=== PATIENT | male | born 1945 | race Caucasian/White ===

== ENCOUNTER 2016-03-05 07:56 | Day surgery (SDC) | payer MEDICARE, OTHER ==
[~2016-03-05] VITALS: Ht 188 cm; Wt 112.0 kg
[~2016-03-05 07:56] MED LIST: ASPI-973 PO; CLOP75TA3 PO; HYDR-3940 PO; HYDR25TA4 PO; LIP40 PO; LORA10CA PO; LOSA50TA37 PO; Lactated Ringer's 1,000 ML IV SCH; MELO7.5O PO; METF1000 PO; METO-272 PO; NIFE60TA62 PO; SITA100T12 PO
--- NOTE | 2016-03-05 09:14 | PCM.PNSURG ---
Subjective Date of Service: Mar 05, 2016 Assessment & Plan Impression Patient presented for ESWL today. Patient states he was advised by his provider that he can stop taking Plavix reyes-op, however patient did not stop taking Plavix pre-op and last took Plavix yesterday. Discussed with patient that it is not safe for him to have ESWL while on blood-thinning medications, which patient understands. ESWL canceled for today. ESWL will be re-scheduled for next available time (2 weeks). Instructed patient to hold all blood- thinning meds (including Plavix) for 7 days before and after ESWL. Of note, patient states he has been having R-sided pain and wishes to have pain medication Rx. [facility] Rx given to patient. Problems: Joel Bustillos MD Mar 05, 2016 09:14
--- NOTE | 2016-03-05 10:23 | DRSVH ---
PROCEDURE: X-RAY KUB ([id number]) INDICATIONS: RIGHT KIDNEY STONE TECHNIQUE: One view of the abdomen acquired. COMPARISON: [facility], MARIANO, MATILDE, 04/14/2012, 10:09. FINDINGS: Surgical changes and devices: None. Bowel: Bowel gas pattern is normal. Soft tissues: There multiple subcentimeter bilateral calcifications projected over the expected locat ion of the kidney which likely represent subcentimeter renal stones. There is a 10 mm diameter calcul us projected over the lower pole of the right kidney. Probable phleboliths are redemonstrated within the pelvis unchanged from the study dated 04/14/12. Bones: No suspicious bony lesions. IMPRESSION: Bilateral nephrolithiasis with the largest stone in the right lower pole. Dictated by: Moira Leary M.D. on 03/05/2016 at 10:21 Approved by: Moira Leary M.D. on 03/05/2016 at 10:21
== END 2016-03-05 23:59 | disposition home or self-care (01) ==
LOC: SAS 07:56
PROVIDERS: ATTEND Urology
DX: N20.0 Calculus of kidney (principal); Z53.09 Procedure and treatment not carried out because of other contraindication; Z79.01 Long term (current) use of anticoagulants

== ENCOUNTER 2016-03-19 05:36 | Day surgery (SDC) | payer MEDICARE, OTHER ==
[2016-03-19] VITALS (9 sets, daily range): BP systolic 128–146; BP diastolic 69–90; PULSE 56–63; RESP 13–22; O2SAT 95–99
[~2016-03-19] VITALS: Ht 188 cm; Wt 110.5 kg
[~2016-03-19 05:36] MED LIST changes: -Lactated Ringer's 1,000 ML IV SCH; +Lidocaine-Prilo 2.5-2.5% 30 Gm Cream TOPICAL ONE
[2016-03-19] MEDS ORDERED: Lidocaine PF 1% 30 mL Inj ONE (05:37)
[2016-03-19] MEDS ORDERED: MetoCLOpramide 5 mg/mL 2 mL Inj ONE (05:37)
[2016-03-19] MEDS ORDERED: EPHEDrine/NS 5 mg/mL 5 mL Syringe ONE (05:37)
[2016-03-19] MEDS ORDERED: fentaNYL-PF 50 mCg/mL 2 mL Inj ONE (05:37)
[2016-03-19] MEDS ORDERED: Propofol 10,000 mCg/mL 20 mL Inj ONE (05:37)
[2016-03-19] MEDS ORDERED: Ondansetron 2 mg/mL 2 mL Inj ONE (05:37)
[2016-03-19] MEDS ORDERED: Dexamethasone 4 mg/mL Inj ONE (05:37)
[2016-03-19] MEDS ORDERED: INSU100I13 SUBQ (07:05)
[2016-03-19] MEDS: Lactated Ringer's 1,000 ML IV SCH ×2 (07:06→07:41)
--- NOTE | 2016-03-19 07:25 | PCM.HPANE ---
Patient Data Date of Service: Mar 19, 2016 Surgeon Admitting Provider: Attending Provider:Waleska Alaniz MD Primary Care Physician:Juan Garnett MD Other Provider:Chidi Miles Anesthesia Reason for Visit Right Kidney Stone Ht/WT & BMI Height (Feet): 6 Height (Inches): 2 Weight (Kilograms): 110.5 Body Mass Index 31.00 Allergies Coded Allergies: tamsulosin (Verified Adverse Reaction, Severe, N&V,DIARRHEA, 03/03/16) Past Anesthesia History Anesthesia History: Denies:: Anesthesia Reactions, Malignant Hyperthermia Diabetes History Hx Diabetes?: Yes Type of Diabetes: Type II Glycemic Control: Oral Medication Current Bedside Blood Glucose: 101 MRSA MRSA: No Medications Blood Thinner: Aspirin, Plavix Hypertension Medication: Yes Home Meds Incl Beta Hamzah: Yes Date Beta Hamzah Taken: Mar 19, 2016 Time Beta Hamzah Taken: 0400 Reported Medications Insulin Glargine (Lantus U100 Solostar Insulin Pen)100 Unit/1 Ml Insuln.pen15 Units SUBQ DAILY #1 PENINJ Ref 0 03/19/16 Clopidogrel Bisulfate (Plavix)75 Mg Rrrvpd48 Mg PO DAILY 30 Days Ref 0 03/03/16 Nifedipine ER 60 Mg Tab.er.2460 Mg PO DAILY Ref 0 03/03/16 Metoprolol Succinate ER 50 Mg Tab.er.24h50 Mg PO BID Ref 0 03/03/16 Metformin (Glucophage)1,000 Mg Tablet1,000 Mg PO BID Ref 0 03/03/16 Meloxicam 7.5 Mg/5 Ml Oral.susp15 Mg PO DAILY 30 Days 03/03/16 Losartan Potassium 50 Mg Lsdoiw33 Mg PO DAILY 03/03/16 Loratadine (Claritin)10 Mg Nrzcrod91 Mg PO DAILY Ref 0 03/03/16 Sitagliptin Phos (Januvia)100 Mg Mledut772 Mg PO DAILY Ref 0 03/03/16 Hydrochlorothiazide 25 Mg Ilvwwr81 Mg PO DAILY 30 Days Ref 0 03/03/16 Hydralazine 50 Mg Mesqwj71 Mg PO BID Ref 0 03/03/16 Atorvastatin (Lipitor)40 Mg Ujiizi37 Mg PO DAILY Ref 0 03/03/16 Aspirin 81 Mg Yvxgyg02 Mg PO DAILY Ref 0 03/03/16 History History of ENT Problems?: Yes HEENT History: Positive for:: Hearing Problem Sinus Problem (HX OF HAY FEVER) Hx of Heart Problems?: Yes Cardiovascular History: Positive for:: Edema Hypertension (HYPERLIPIDEMIA) Denies:: Chest Pain Heart Murmur Other Cardiac History: denies CP; pt states had TTE 11/2015 that was unremarkable Hx of Respiratory Problem?: Yes Respiratory History: Positive for:: Use of C-PAP Machine (MAHESH+ W/ CPAP) Hx Neurologic Problems?: Yes Neurological History: Positive for:: CVA ("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) Musculoskeletal Trauma (S/P LT KNEE SCOPE) Denies:: Back Injury (C/OF CHRONIC BACK PAIN) Other History/Comment R shoulder scapular painm, paroxysmal, past few days, not related to exertion or chest pain Hx of Psycho/Social Problems?: No Hx Surgeries?: Yes (HERNIA RPR X2,NEUROMA EXC RT ULNAR NERVE,LT KNEE SCOPE,RT TKA,GANGLION EXC ) Hx Any Other Health Problems?: Yes Other History: Denies:: Cancer Endocrine Disease (C/OF POLYURIA) Hospitalization Thyroid Disease History Blood Transfusions: Denies:: Blood Transfusions Hx Diabetes: YesBedside Blood Glucose: 101 Hx Alcohol Use: YesHx Substance Use: No Smoking Status: Former Smoker Have You Smoked inLast 12 mo: No Stop/Bang Treated for Sleep Apnea?: Yes Do You Have a CPAP Machine?: Yes (compliant with CPAP) S-Snoring: Do You Snore Loudly: Yes T-Tired: feel tired, fatigued: Yes O-Obsered: Observed not breath: Yes P-Blood Pressure: treated: Yes B- Body Mass Index > 35 kg/m2: No A- Age over 50: Yes N- Neck Large Circumference: No G- Gender Male: Yes MAHESH Total Score: 6 MAHESH Risk Assessment: High Risk, =/>3 Yes Risk Assessment Category Category 1A: Patient has history of documented sleep apnea, and HAS NOT received any narcotic, sedative or anesthesia administration during this stay. Category 1B: Patient has history of documented sleep apnea, and HAS received any narcotic , sedative or anesthesia administration during this stay Category 2: Patient has SUSPECTED Obstructive Sleep Apnea, and HAS received any narcotic , sedative or anesthesia administration during this stay. Category 3: Patient has SUSPECTED Obstructive Sleep Apnea and HAS NOT received narcotic, sedative or anesthesia administration during this stay. Category 4: Outpatient in Procedural Areas with known sleep apnea or who screen positive for High Risk via the STOP/BANG questionnaire. Exam Exam Vital Signs Vital Signs Date Time Temp Pulse Resp B/P Pulse Ox O2 Delivery O2 Flow Rate FiO2 03/19/16 06:58 36.2 60 16 146/90 99 Room Air General Appearance: Alert, Oriented X3, Cooperative, No Acute Distress HEENT/AIRWAY: MP 2, Neck Movement (FROM), Mouth Opening (3), Other (TMD3) Lungs: Diminished (diffusely slightly diminished) Heart: Exam Unremarkable, Regular Rate/Rhythm, Normal S1, Normal S2, No Murmurs /Rubs/Gallops Additional Information RUE no limitation on range of motion, non-reproducible pain with palpation Meds/Labs/Diagnostics Admission Meds Current Medications Lactated Ringer's (Lr) 1,000 ml @ 120 mls/hr Q8H20M IV Last administered on t 07:06; Start 03/19/16 at 05:00; Stop 03/19/16 at 13:19 Bedside Blood Glucose: 101 Plan Impression Patient chart reviewed, patient interviewed and anesthestic plan with risks, benefits, and alternatives discussed, and informed consent obtained. NPO Status: 0400 WATER WITH MEDS ASA Physical Status: ASA3 Severe Disease Anesthetic Plan: GA Bene/Risks/Altern/Consents: Yes HP Complete Prior to Induction: Yes Nicho Armando MD Mar 19, 2016 07:25
[2016-03-19] MEDS ORDERED: Dexamethasone 4 mg/mL Inj IVPUSH PRN (07:50)
[2016-03-19] MEDS ORDERED: EPHEDrine Sulfate 50 mg/mL Inj IVPUSH PRN (07:50)
[2016-03-19] MEDS ORDERED: Ondansetron 2 mg/mL 2 mL Inj IVPUSH PRN (07:50)
[2016-03-19] MEDS ORDERED: fentaNYL-PF 50 mCg/mL 2 mL Inj IVPUSH PRN (07:50)
[2016-03-19] MEDS ORDERED: Lactated Ringer's 1,000 ML IV SCH (07:50)
[2016-03-19] MEDS ORDERED: Phenylephrine 10,000 mCg/mL Inj IVPUSH PRN (07:50)
[2016-03-19] MEDS ORDERED: HYDROmorphone 1 mg/mL Inj IVPUSH PRN (07:50)
[2016-03-19] MEDS ORDERED: MetoCLOpramide 5 mg/mL 2 mL Inj IVPUSH PRN (07:50)
[2016-03-19] MEDS ORDERED: Lactated Ringer's 500 ML IV PRN (07:50)
[2016-03-19] MEDS ORDERED: HYDROcodone-APAP 5-325 mg Tablet PO PRN (08:30)
[2016-03-19] MEDS ORDERED: Ondansetron 8 mg ODT Tablet PO PRN (08:30)
--- NOTE | 2016-03-19 14:05 | DRSVH ---
PROCEDURE: X-RAY KUB ([id number]) INDICATIONS: RIGHT KIDNEY STONE TECHNIQUE: One view of the abdomen acquired. COMPARISON: [facility], CT, IVP (ABD & PEL WWO CONTRAST), 01/31/2016, 9:39. [facility] ital, CR, XR KUB, 03/05/2016, 8:37. FINDINGS: Surgical changes and devices: None. Bowel: Bowel gas pattern is normal. Soft tissues: 1 cm calcification is seen projected over the midpole the right kidney and 6 mm calcifi cation projected over the upper pole the right kidney. Bones: No suspicious bony lesions. IMPRESSION: Calcifications again seen projected over the right kidney. Dictated by: Orlin Anguiano RRA Interpreted: Chhaya Wright MD on 03/19/2016 at 14:03 Transcribed by: MALCOLM on 03/19/2016 at 14:05 Approved by: Chhaya Wright MD, PhD on 03/19/2016 at 17:27
--- NOTE | 2016-03-19 14:19 | PCM.ANEP2 ---
Post Anesthesia Evaluation ASA/CMS Post Anesthesia VS in Patient's Normal Range?: Yes Resp Stable; Airway Patent?: Yes CV Function & Hydration Stable: Yes Mental Status Recovered?: Yes Pain control Satisfactory?: Yes N/V Control Satisfactory?: Yes Nicho Armando MD Mar 19, 2016 14:19
--- NOTE | 2016-03-19 14:19 | PCM.ANEP1 ---
Post Anesthesia Phase 1 PACU Phase 1 Assessment Date of Service: Mar 19, 2016 Vital Signs Vital Signs Date Time Temp Pulse Resp B/P Pulse Ox O2 Delivery O2 Flow Rate FiO2 03/19/16 09:35 60 16 144/76 98 Room Air 03/19/16 08:49 36.7 57 13 132/69 95 Room Air 03/19/16 08:45 58 17 131/71 96 Room Air 03/19/16 08:40 36.4 56 15 128/73 95 Room Air 03/19/16 08:35 57 15 129/72 95 Room Air 03/19/16 08:30 60 16 131/73 99 Simple Mask 6 03/19/16 08:25 63 22 132/71 98 Simple Mask 6 03/19/16 08:23 36.5 135/73 03/19/16 06:58 36.2 60 16 146/90 99 Room Air Anesthetic Administered: GA Level of Alertness: Awake, talking SAENZ's with Equal Strength: Yes Pain: No Pain Scale Score: 0 Nausea or Vomiting: No Oxygen Delivery: Simple Mask Lungs: Diminished (diffusely slightly diminished) Nicho Armando MD Mar 19, 2016 14:19
--- NOTE | 2016-03-19 19:35 | OP ---
[address] [address] OPERATIVE REPORT PATIENT: SANDRO JANE : 1945 MR#: [id number] ADMIT: 03/19/2016 JOB ID: [id number] DATE OF SURGERY: 03/19/2016 PROCEDURE: Right-sided shockwave lithotripsy. SURGEON: Waleska Alaniz MD ANESTHESIA: General, with Dr. Armando PREOPERATIVE DIAGNOSIS(ES): Right-sided renal calculus 1.1 x 0.8. POSTOPERATIVE DIAGNOSIS(ES): Right-sided renal calculus 1.1 x 0.8. INDICATIONS: The patient is a 70-year-old gentleman with a right-sided renal calculus electing treatment with shockwave lithotripsy. Risks and benefits of the procedure were discussed with the patient and he wished to proceed with surgery. PROCEDURE IN DETAIL: After appropriate informed consent was obtained, the patient was brought to the operating room. SCDs were placed. He was carefully placed in the supine position on the shockwave table. Adequate general anesthesia induced. The fluoroscope was brought in. The stone on the right side was readily visible and was targeted nicely and was treated with a total of 2000 shocks. There was a pause after the first 200 shocks. He was treated at a level of 4-9 initially, backing down to 7 as the stone appeared to be breaking up very nicely. Rate was 60 initially, brought up to 90 as the stone was breaking up very well. At termination of the procedure there appeared to be good dissolution of the stone. Good benefit. The patient tolerated the procedure well. Skin condition was excellent. He was awakened and taken in stable condition to the postanesthesia care unit.
== END 2016-03-19 23:59 | disposition home or self-care (01) ==
LOC: SAS 05:36
PROVIDERS: ATTEND Urology
DX: N20.0 Calculus of kidney (principal); E11.9 Type 2 diabetes mellitus without complications; I10 Essential (primary) hypertension; R60.9 Edema, unspecified; Z79.4 Long term (current) use of insulin; Z79.899 Other long term (current) drug therapy; Z79.82 Long term (current) use of aspirin; Z79.891 Long term (current) use of opiate analgesic
CPT/HCPCS: 50590; 74000; J1100; J2250; J2405; J2765; J7120